=== PATIENT | female | born 1995 | race Two or more races ===

== ENCOUNTER 2018-06-26 00:30 | Emergency (ER) | payer SELFPAY ==
[2018-06-26] MEDS ORDERED: NACL 0.9% 1000 ML 1,000 ML IV ONE ×2 (01:23→04:23)
[2018-06-26 01:47] LABS: Basophils % (Auto) 0.3 % (0.0-1.8); Eosinophils # (Auto) 0.1 K/mm3 (0.0-0.4); Eosinophils % (Auto) 0.9 % (0.0-4.3); Hematocrit 37.8 % (30.3-42.9); Hemoglobin 12.4 gm/dl (10.1-14.3); Lymphocytes % (Auto) 19.1 % (13.4-35.0); Mean Corpuscular HGB Conc 33 % (30-34); Mean Corpuscular Volume 80 fl (79-97); Monocytes # (Auto) 0.6 K/mm3 (0.0-0.8); Monocytes % (Auto) 5.5 % (0.0-7.3); Platelet Count 200 K/mm3 (140-440); Red Blood Count 4.71 M/mm3 (3.65-5.03); Red Cell Distribution Width 15.1 % (13.2-15.2)
[2018-06-26 02:03] LABS: Alanine Aminotransferase 17 units/L (7-56); Albumin 4.2 g/dL (3.9-5); BUN/Creatinine Ratio 17; Blood Urea Nitrogen 10 mg/dL (7-17); Calcium 9.4 mg/dL (8.4-10.2); Hemolysis Index 4
[2018-06-26 02:14] LABS: INR 0.96 (0.87-1.13)
[2018-06-26 02:15] LABS: Partial Thromboplastin Time 30.8 Sec. (24.2-36.6)
--- NOTE | 2018-06-26 04:21 | Emergency Department Report ---
ED General Adult HPI - General Chief complaint: GI Bleed Stated complaint: THROWING BLOOD/ABDOMINAL ULCERS Time Seen by Provider: 06/26/18 04:20 Source: patient Mode of arrival: Ambulatory Limitations: No Limitations - History of Present Illness Initial comments: 23-year-old female who states that she was told she had ulcers when she went to an emergency department but has had no subsequent follow-up with a career services officer in the past presents stating that she had abdominal pain with vomiting. Patient states that the vomiting began at 10:30 PM. Patient states that she believes her vomit had a blood tinge to it after dinner. Patient denies any blood clots in her vomit. Patient denies any melena. Patient denies any vaginal bleeding or pelvic pain. Patient denies dysuria. Patient states that while on face time with her mom when she vomited her mother told her she had 2 seizures. Patient denies any seizure activity in the past. Severity scale (0 -10): 6 - Related Data Previous Rx's Medication Instructions Recorded Last Taken Type Ondansetron (Nf) [Zofran TAB] 4 mg PO Q8HR PRN #20 tablet 06/26/18 Unknown Rx traMADol [Ultram] 50 mg PO Q6HR PRN #20 tablet 06/26/18 Unknown Rx Allergies Allergy/AdvReac Type Severity Reaction Status Date / Time Penicillins Allergy Anaphylaxis Verified 06/26/18 01:10 seafood Allergy Anaphylaxis Uncoded 06/26/18 01:10 ED Review of Systems ROS: Stated complaint: THROWING BLOOD/ABDOMINAL ULCERS Other details as noted in HPI Constitutional: denies: chills, fever Eyes: denies: eye pain, eye discharge, vision change ENT: denies: ear pain, throat pain Respiratory: denies: cough, shortness of breath, wheezing Cardiovascular: denies: chest pain, palpitations Endocrine: no symptoms reported Gastrointestinal: abdominal pain, nausea, vomiting Genitourinary: denies: urgency, dysuria, discharge Musculoskeletal: denies: back pain, joint swelling, arthralgia Skin: denies: rash, lesions Neurological: other (seizure) Psychiatric: denies: anxiety, depression Hematological/Lymphatic: denies: easy bleeding, easy bruising ED Past Medical Hx - Past Medical History Previous Medical History?: Yes Additional medical history: h/o ulcers - Surgical History Past Surgical History?: No - Social History Smoking Status: Never Smoker Substance Use Type: None - Medications Home Medications: Home Medications Medication Instructions Recorded Confirmed Last Taken Type Ondansetron (Nf) [Zofran TAB] 4 mg PO Q8HR PRN #20 tablet 06/26/18 Unknown Rx traMADol [Ultram] 50 mg PO Q6HR PRN #20 tablet 06/26/18 Unknown Rx ED Physical Exam - General Limitations: No Limitations General appearance: alert, other (awake, uncomfortable, dehydrated) - Head Head exam: Present: atraumatic, normocephalic - Eye Eye exam: Present: normal appearance - ENT ENT exam: Present: mucous membranes dry - Neck Neck exam: Present: normal inspection - Respiratory Respiratory exam: Present: normal lung sounds bilaterally. Absent: respiratory distress - Cardiovascular Cardiovascular Exam: Present: regular rate, normal rhythm. Absent: systolic murmur, diastolic murmur, rubs, gallop - GI/Abdominal GI/Abdominal exam: Present: soft, tenderness (noted in the epigastric region), normal bowel sounds. Absent: guarding, rebound - Extremities Exam Extremities exam: Present: normal inspection - Back Exam Back exam: Present: normal inspection - Neurological Exam Neurological exam: Present: alert, oriented X3 - Psychiatric Psychiatric exam: Present: normal affect, normal mood - Skin Skin exam: Present: warm, dry, intact, normal color. Absent: rash ED Course Vital Signs 06/26/18 06/26/18 06/26/18 00:51 00:54 01:13 Temperature 97.9 F 97.9 F Pulse Rate 72 Respiratory 16 20 Rate Blood Pressure 84/50 121/86 84/50 Blood Pressure [Left] O2 Sat by Pulse 98 98 Oximetry 06/26/18 06/26/18 06/26/18 03:57 04:53 05:27 Temperature Pulse Rate 68 58 L Respiratory 18 18 16 Rate Blood Pressure Blood Pressure 85/43 115/56 [Left] O2 Sat by Pulse 98 100 Oximetry 06/26/18 06:47 Temperature Pulse Rate 68 Respiratory 16 Rate Blood Pressure Blood Pressure 117/70 [Left] O2 Sat by Pulse 99 Oximetry ED Medical Decision Making - Lab Data Result diagrams: 06/26/18 01:30 06/26/18 01:30 - Medical Decision Making Patient received 2 L of IV fluids and her blood pressure improved. Patient received tramadol for pain and this improved as well. Patient noted of the CT was shows presence of cholelithiasis. Patient denies any pelvic pain. She noted to have an ovarian cyst. Discharged to follow-up with her PCP. Patient to receive Ultram and Zofran therapy upon discharge. With patient having a stable hemoglobin and her case was discussed with with gastroenterology and states that the patient can follow-up as an outpatient. Patient made aware of this as well. - Differential Diagnosis pancreatitis; cholelithiasis; dehydration; ectopic Critical care attestation.: If time is entered above; I have spent that time in minutes in the direct care of this critically ill patient, excluding procedure time. ED Disposition Clinical Impression: Gastritis, Vomiting, Seizure, Ovarian cyst Disposition: TO HOME OR SELFCARE Is pt being admited?: No Does the pt Need Aspirin: No Condition: Stable Instructions: Cholelithiasis (ED), Gastrointestinal Bleeding (ED), Ovarian Cyst (ED) Prescriptions: Ondansetron (Nf) [Zofran TAB] 4 mg PO Q8HR PRN #20 tablet PRN Reason: Vomiting traMADol [Ultram] 50 mg PO Q6HR PRN #20 tablet PRN Reason: Pain Referrals: JONA SOLIMAN MD [Staff Physician] - 3-5 Days LUCRECIA HORNE MD [Staff Physician] - 3-5 Days EMIR BARRERA MD [Referring] - 3-5 Days Forms: Accompanied Note Time of Disposition: 07:19 Print Language: GREEK
--- NOTE | 2018-06-26 05:26 | Cat Scan Report ---
FINAL REPORT EXAM: CT ABDOMEN PELVIS WO CON HISTORY: abdominal pain TECHNIQUE: Routine axial imaging was obtained of the abdomen and pelvis without oral or IV contrast. Sagittal and coronal reconstructions were reviewed. FINDINGS: The lung bases are clear. Pleural fluid is not seen. The gallbladder is normal size and reveals a small calcification. There are no secondary signs of acu te cholecystitis. The liver and biliary tree appear normal. The pancreas, spleen, and adrenal glands appear normal. The kidneys show no evidence of stones or hydronephrosis. The bowel loops are normal i n caliber and course. The appendix is not enlarged. There is no evidence of adenopathy. In the pelvi s the uterus is enlarged. There is a small amount of free fluid in cul-de-sac. The right ovary reveal s 3.4 cm cyst. The left ovary is unremarkable. The skeletal structures are well-maintained IMPRESSION: 3.4 cm right ovarian cyst. Small amount of free fluid in cul-de-sac. No evidence of appendicitis. Very small gallstone. No secondary signs of acute cholecystitis. Enlarged uterus. Underlying fibroids cannot be excluded.
--- NOTE | 2018-06-26 05:27 | Cat Scan Report ---
FINAL REPORT EXAM: CT HEAD/BRAIN WO CON HISTORY: abdominal pain TECHNIQUE: Routine axial imaging was obtained of the brain without IV contrast. FINDINGS: There is no evidence of acute stroke or hemorrhage. The ventricular system is normal in size. The bas al cisterns appear normal. The mastoid air cells are well pneumatized. The visualized sinuses are modesta ar but the calvarium appears intact. IMPRESSION: Within normal limits.
[2018-06-26] MEDS ORDERED: ULTRAM PO ONE (06:43)
[2018-06-26 06:48] VITALS: BP 117/70
== END 2018-06-26 07:53 | disposition home or self-care (01) ==
LOC: ED 00:30
DX: K29.70 Gastritis, unspecified, without bleeding (principal); R56.9 Unspecified convulsions; N83.209 Unspecified ovarian cyst, unspecified side; Z91.013 Allergy to seafood; Z88.0 Allergy status to penicillin
CPT/HCPCS: 36415; 70450; 74176; 80053; 83690; 84703; 85025; 85610; 85730; 86850; 86900; 86901; 96360; 96361; 99284; J7030

== ENCOUNTER 2019-02-02 12:14 | Emergency (ER) | payer MEDICAID ==
[2019-02-02] MEDS ORDERED: PEPCID IV ONE (15:26)
[2019-02-02] MEDS ORDERED: ZOFRAN IV ONE (15:26)
[2019-02-02] MEDS ORDERED: CARAFATE PO ONE (15:26)
[2019-02-02] MEDS ORDERED: NACL 0.9% 1000 ML 1,000 ML IV ONE (15:26)
--- NOTE | 2019-02-02 15:29 | Emergency Department Report ---
ED General Adult HPI - General Chief complaint: Abdominal Pain Stated complaint: STOMACH ULCERS Time Seen by Provider: 02/02/19 15:16 Source: patient, EMS (EMS notes not available at time of chart dictation), RN notes reviewed, old records reviewed Mode of arrival: Stretcher Limitations: No Limitations - History of Present Illness Initial comments: This is a 23-year-old female. This patient is not known to this provider previously. She typically follows with the [facility]. The patient believes that she has a history of stomach ulcers. However, the patient had a formal endoscopy. She also reports a history of "abnormal gallbladder." The patient has a history of chronic abdominal pain. Today, the patient presents to the ER with a complaint of nontraumatic sudden diffuse cramping abdominal pain, chest wall pain, nausea and vomiting. The symptoms are intermittent, did not radiate, now resolved. The patient denies DVT, pulmonary embolus risk factors. She denies urinary symptoms. The patient denies cannabis and tobacco use. Of note, patient seen for similar symptoms at this hospital June 2018, had unremarkable CT scan of the abdomen and pelvis. -: Gradual Location: chest, abdomen Quality: aching Consistency: constant, now resolved Improves with: none Worsens with: none - Related Data Previous Rx's Medication Instructions Recorded Last Taken Type Ondansetron (Nf) [Zofran TAB] 4 mg PO Q8HR PRN #20 tablet 06/26/18 Unknown Rx Acetaminophen [Non-Aspirin Extra 500 mg PO Q6HR PRN #30 tablet 02/02/19 Unknown Rx Strength] Famotidine [Pepcid] 20 mg PO BID #10 tablet 02/02/19 Unknown Rx Ondansetron [Zofran Odt] 4 mg PO Q8HR PRN #20 tab.rapdis 02/02/19 Unknown Rx Promethazine HCl [Phenergan SUPPOS] 25 mg RC Q6HR PRN #15 supp.rect 02/02/19 Unknown Rx Allergies Allergy/AdvReac Type Severity Reaction Status Date / Time Penicillins Allergy Anaphylaxis Verified 06/26/18 01:10 seafood Allergy Anaphylaxis Uncoded 06/26/18 01:10 ED Review of Systems ROS: Stated complaint: STOMACH ULCERS Other details as noted in HPI Constitutional: malaise, weakness. denies: fever Eyes: denies: eye discharge Respiratory: denies: wheezing Cardiovascular: chest pain (chest wall pain with coughing, nausea vomiting) Gastrointestinal: abdominal pain, nausea, vomiting, constipation. denies: hematemesis, melena, hematochezia Genitourinary: denies: dysuria Musculoskeletal: denies: back pain Skin: denies: lesions Neurological: weakness Psychiatric: anxiety ED Past Medical Hx - Past Medical History Additional medical history: h/o ulcers - Social History Smoking Status: Never Smoker Substance Use Type: None - Medications Home Medications: Home Medications Medication Instructions Recorded Confirmed Last Taken Type Ondansetron (Nf) [Zofran TAB] 4 mg PO Q8HR PRN #20 tablet 06/26/18 Unknown Rx Acetaminophen [Non-Aspirin Extra 500 mg PO Q6HR PRN #30 tablet 02/02/19 Unknown Rx Strength] Famotidine [Pepcid] 20 mg PO BID #10 tablet 02/02/19 Unknown Rx Ondansetron [Zofran Odt] 4 mg PO Q8HR PRN #20 tab.rapdis 02/02/19 Unknown Rx Promethazine HCl [Phenergan SUPPOS] 25 mg RC Q6HR PRN #15 supp.rect 02/02/19 Unknown Rx ED Physical Exam - General Limitations: No Limitations, Other (during the history and physical, I am chaper oned by nurse Daniella Hernández) General appearance: alert, anxious - Head Head exam: Present: atraumatic, normocephalic - Eye Eye exam: Present: normal appearance, EOMI. Absent: nystagmus - ENT ENT exam: Present: normal exam, normal orophraynx, mucous membranes moist, normal external ear exam - Neck Neck exam: Present: normal inspection, full ROM. Absent: tenderness, meningismus - Respiratory Respiratory exam: Present: normal lung sounds bilaterally. Absent: respiratory distress - Cardiovascular Cardiovascular Exam: Present: regular rate, normal rhythm, normal heart sounds. Absent: bradycardia, tachycardia, irregular rhythm, systolic murmur, diastolic murmur, rubs, gallop - GI/Abdominal GI/Abdominal exam: Present: soft. Absent: distended, tenderness, guarding, rebound, rigid, pulsatile mass - Extremities Exam Extremities exam: Present: normal inspection, full ROM, other (2+ pulses noted in the bilateral upper, lower extremities. There is no long bony tenderness. The pelvis is stable. Muscular compartments are soft. There is no redness, pus, streaking or crepitus noted.). Absent: pedal edema, calf tenderness - Back Exam Back exam: Present: normal inspection, full ROM. Absent: tenderness, CVA t enderness (R), CVA tenderness (L), paraspinal tenderness, vertebral tenderness - Neurological Exam Neurological exam: Present: alert, oriented X3, normal gait, other (Extraocular movements are intact bilaterally. There is no facial droop. The tongue is midline. Patient speaking in full complete sentences. There is no dysphonia. Hearing is grossly intact bilaterally. Shoulder shrug is intact bilaterally. 5/5 strength bilateral upper, lower extremities. Sensation is intact to light touch bilateral upper, lower extremities.). Absent: motor sensory deficit - Psychiatric Psychiatric exam: Present: normal affect, normal mood - Skin Skin exam: Present: warm, dry, intact, normal color. Absent: rash ED Course Vital Signs 02/02/19 02/02/19 13:27 19:14 Temperature 98.2 F 98.5 F Pulse Rate 82 72 Respiratory 18 20 Rate Blood Pressure 93/57 Blood Pressure 96/57 [Right] O2 Sat by Pulse 99 100 Oximetry ED Medical Decision Making - Lab Data Result diagrams: 02/02/19 15:44 02/02/19 15:44 Vital Signs 02/02/19 02/02/19 13:27 19:14 Temperature 98.2 F 98.5 F Pulse Rate 82 72 Respiratory 18 20 Rate Blood Pressure 93/57 Blood Pressure 96/57 [Right] O2 Sat by Pulse 99 100 Oximetry Lab Results 02/02/19 02/02/19 02/02/19 Range/Units 15:44 15:44 15:44 WBC 8.3 (4.5-11.0) K/mm3 RBC 4.50 (3.65-5.03) M/mm3 Hgb 12.0 (10.1-14.3) gm/dl Hct 36.7 (30.3-42.9) % MCV 82 (79-97) fl MCH 27 L (28-32) pg MCHC 33 (30-34) % RDW 13.7 (13.2-15.2) % Plt Count 155 (140-440) K/mm3 Sodium 140 (137-145) mmol/L Potassium 3.6 (3.6-5.0) mmol/L Chloride 102.6 (98-107) mmol/L Carbon Dioxide 24 (22-30) mmol/L Anion Gap 17 mmol/L BUN 8 (7-17) mg/dL Creatinine 0.7 (0.7-1.2) mg/dL Estimated GFR > 60 ml/min BUN/Creatinine Ratio 11 % Glucose 89 (65-100) mg/dL Calcium 9.1 (8.4-10.2) mg/dL Magnesium 1.80 (1.7-2.3) mg/dL Total Bilirubin 0.60 (0.1-1.2) mg/dL AST 18 (5-40) units/L ALT 9 (7-56) units/L Alkaline Phosphatase 69 (35-129) units/L Total Creatine Kinase 69 (30-135) units/L Total Protein 7.2 (6.3-8.2) g/dL Albumin 3.9 (3.9-5) g/dL Albumin/Globulin Ratio 1.2 % Lipase 25 (13-60) units/L HCG, Quant < 2 (0-4) mIU/mL Salicylates (2.8-20.0) mg/dL Acetaminophen (10.0-30.0) ug/mL Plasma/Serum Alcohol (0-0.07) % 02/02/19 02/02/19 02/02/19 Range/Units 15:44 15:44 15:44 WBC (4.5-11.0) K/mm3 RBC (3.65-5.03) M/mm3 Hgb (10.1-14.3) gm/dl Hct (30.3-42.9) % MCV (79-97) fl MCH (28-32) pg MCHC (30-34) % RDW (13.2-15.2) % Plt Count (140-440) K/mm3 Sodium (137-145) mmol/L Potassium (3.6-5.0) mmol/L Chloride (98-107) mmol/L Carbon Dioxide (22-30) mmol/L Anion Gap mmol/L BUN (7-17) mg/dL Creatinine (0.7-1.2) mg/dL Estimated GFR ml/min BUN/Creatinine Ratio % Glucose (65-100) mg/dL Calcium (8.4-10.2) mg/dL Magnesium (1.7-2.3) mg/dL Total Bilirubin (0.1-1.2) mg/dL AST (5-40) units/L ALT (7-56) units/L Alkaline Phosphatase (35-129) units/L Total Creatine Kinase (30-135) units/L Total Protein (6.3-8.2) g/dL Albumin (3.9-5) g/dL Albumin/Globulin Ratio % Lipase (13-60) units/L HCG, Quant (0-4) mIU/mL Salicylates < 0.3 L (2.8-20.0) mg/dL Acetaminophen < 5.0 L (10.0-30.0) ug/mL Plasma/Serum Alcohol < 0.01 (0-0.07) % - EKG Data -: EKG Interpreted by Nv EKG shows normal: sinus rhythm Rate: normal - EKG Data When compared to previous EKG there are: previous EKG unavailable 02/02/19 19:23 There is no prior EKG available for comparison. This is a sinus rhythm, 69 bpm, normal axis, QTC within normal limits, CT intervals prolonged, there is low voltage, the EKG is abnormal, there is no endorsement of ischemic pain, EKG is not consistent with ST elevation myocardial infarction. - Radiology Data Radiology results: report reviewed, image reviewed X-ray of the chest is negative for acute disease. Right upper quadrant ultrasound is negative for acute disease. - Medical Decision Making Differential diagnosis, including not limited to: GERD, gastritis, hiatal hernia, costochondritis, cyclic vomiting syndrome, IBS, constipation, cannabinoid hyperemesis syndrome Assessment and plan: 23-year-old female, reports no pulmonary embolism or DVT risk factors, low risk by well's criteria, perc negative, who reports chronic history of abdominal pain, no formal endoscopic workup, initially appeared to be somewhat distressed, now resting comfortably, and in no acute distress. Objective laboratory studies unremarkable. Objective imaging studies unremarkable. Patient tolerating liquid feeds at this time, without active vomiting. She endorses no irritative or obstructive urinary symptoms. She declines to produce a urine sample at this time. Given young age, immune competent, unremarkable physical exam, urinary tract infection is unlikely. Patient is advised to perform diet and left, medications, avoid consumption of cannabis, marijuana, is being exposed to it, initially to follow-up with an outpatient GI physician for endoscopic workup and further evaluation. Critical care attestation.: If time is entered above; I have spent that time in minutes in the direct care of this critically ill patient, excluding procedure time. ED Disposition Clinical Impression: Chronic abdominal pain Disposition: DC-01 TO HOME OR SELFCARE Is pt being admited?: No Does the pt Need Aspirin: No Condition: Stable Additional Instructions: Avoid consumption of Motrin, ibuprofen, Naprosyn, Aleve. Avoid consumption and exposure to marijuana, cannabis, tobacco. Drink 4-6 cups of water per day. Recommend follow-up with an outpatient patent attorney within the next month to determine if patient requires endoscopic evaluation. Take the pain medication, nausea medication as needed/directed, and return to the emergency room right away with projectile vomiting, change in mental status, confusion, inability to tolerate liquid feeds, new, worsening or different symptoms are present on initial emergency room evaluation. Referrals: [facility] [Provider Group] - 3-5 Days
[2019-02-02 16:03] LABS: Hematocrit 36.7 % (30.3-42.9); Mean Corpuscular HGB Conc 33 % (30-34); Mean Corpuscular Volume 82 fl (79-97); Platelet Count 155 K/mm3 (140-440); Red Cell Distribution Width 13.7 % (13.2-15.2)
[2019-02-02 17:46] LABS: Alanine Aminotransferase 9 units/L (7-56); Albumin 3.9 g/dL (3.9-5); BUN/Creatinine Ratio 11; Blood Urea Nitrogen 8 mg/dL (7-17); Calcium 9.1 mg/dL (8.4-10.2); Hemolysis Index 4
--- NOTE | 2019-02-02 17:59 | Ultrasound Report ---
US abdomen limited INDICATION / CLINICAL INFORMATION: abd pain ruq pain. COMPARISON: None available. FINDINGS: Gallbladder is normal without evidence of cholelithiasis. Common bile duct is normal measuring 2 mm. Visualized portions of the liver, aorta and right kidney are normal. IMPRESSION: Negative limited abdominal ultrasound Signer Name: Pako Shaihk MD FACR Signed: 02/02/2019 5:54 PM Workstation Name: [email or web address]
--- NOTE | 2019-02-02 19:04 | XRay Report ---
CHEST 2 VIEWS INDICATION / CLINICAL INFORMATION: burning epigastrcipain. COMPARISON: None available. FINDINGS: SUPPORT DEVICES: None. HEART / MEDIASTINUM: No significant abnormality. LUNGS / PLEURA: No significant pulmonary or pleural abnormality. No pneumothorax. ADDITIONAL FINDINGS: No significant additional findings. IMPRESSION: No significant abnormality. Signer Name: Pako Shaikh MD FACR Signed: 02/02/2019 7:00 PM Workstation Name: [id number]
[2019-02-02 19:16] VITALS: BP 96/57
== END 2019-02-02 19:50 | disposition home or self-care (01) ==
LOC: ED 12:14
DX: K25.7 Chronic gastric ulcer without hemorrhage or perforation (principal); R11.2 Nausea with vomiting, unspecified; F41.9 Anxiety disorder, unspecified; Z79.899 Other long term (current) drug therapy; Z91.013 Allergy to seafood; Z88.0 Allergy status to penicillin
CPT/HCPCS: 36415; 71046; 76705; 80053; 82550; 83690; 83735; 84702; 85027; 93005; 93010; 96361; 96374; 96375; 99285; J2405; J7030; 80320; G0480